=== PATIENT | female | born 1955 | race African-American/Black ===

== ENCOUNTER 2016-10-23 11:14 | Emergency (ER) | payer MEDICAID ==
[~2016-10-23] VITALS: Ht 157.5 cm; Wt 83.9 kg
[2016-10-23] MEDS ORDERED: PROMETHAZINE HCL 25 MG/1 ML VIAL IM ONE (12:15)
[2016-10-23] MEDS ORDERED: HYDROMORPHONE 1 MG/1 ML DISP.SYRIN IM ONE (12:15)
--- NOTE | 2016-10-23 12:22 | NUR ---
Patient discharged to home in stable conditon. Written and verbal after care instructions given. Patient verbalizes understanding of instructions.PT WALKS IN STEADY GAIT
[2016-10-23 12:23] VITALS: BP 116/71
== END 2016-10-23 12:24 | disposition home or self-care (01) ==
LOC: ER 11:14
DX: M25.551 Pain in right hip (principal); W18.40XA Slipping, tripping and stumbling without falling, unspecified, initial encounter; Y93.89 Activity, other specified; Y99.8 Other external cause status; Y92.89 Other specified places as the place of occurrence of the external cause
CPT/HCPCS: 73551; 93005; A4663

== ENCOUNTER 2016-12-23 09:59 | Emergency (ER) | payer MEDICAID ==
[~2016-12-23] VITALS: Ht 157.5 cm; Wt 83.9 kg
[2016-12-23] MEDS ORDERED: OMEP20TA5 PO (10:12)
[2016-12-23 11:02] LABS: BASOPHILS % (AUTO) 0.6 % (0.0-2.0); EOSINOPHILS # (AUTO) 0.2 K/uL (0.0-0.7); HEMOGLOBIN 13.3 G/DL (12.0-16.0); LYMPHOCYTES # (AUTO) 1.5 K/UL (0.8-4.8); MEAN CORPUSCULAR HEMOGLOBIN 27.7 UUG (27.0-31.0); RED BLOOD CELL COUNT(AUTO) 4.79 MIL/UL (4.2-5.4); WHITE BLOOD COUNT (AUTO) 6.4 K/UL (4.0-11.2)
[2016-12-23 11:04] LABS: EOSINOPHILS % (AUTO) 2.8 % (0.0-7.0); HEMATOCRIT 41.5 % (37-47); LYMPHOCYTES % (AUTO) 22.8 % (20.5-51.5); MEAN CORPUSCULAR HGB CONC 32 g/dL (32.0-37.0); MEAN CORPUSCULAR VOLUME 86.5 FL (81.0-99.0); MONOCYTES # (AUTO) 0.6 K/UL (0.1-1.30); MONOCYTES % (AUTO) 8.8 % (0.0-11.0); NEUTROPHILS # (AUTO) 4.1 K/UL (1.8-8.9); PLATELET COUNT (AUTO) 321 K/UL (150-450)
[2016-12-23 11:22] LABS: BILIRUBIN,DIRECT 0.1 mg/dL (0.0-0.2); BILIRUBIN,TOTAL 0.3 mg/dL (0.2-1.0); CREATININE 0.8 mg/dL (0.6-1.3); POTASSIUM 4.4 mmol/L (3.5-5.1); TOTAL PROTEIN, SERUM 7.5 g/dL (6.4-8.2)
[2016-12-23] MEDS ORDERED: ACETAMINOPHEN ES 500 MG TABLET PO ONE (11:45)
[2016-12-23] MEDS ORDERED: ACETAMINOPHEN ES 500 MG TABLET ONE (12:00)
--- NOTE | 2016-12-23 12:20 | NUR ---
Patient discharged to home in stable conditon. Written and verbal after care instructions given. Patient verbalizes understanding of instructions.pt walks in steady gait.
[2016-12-23 12:49] VITALS: BP 109/71
== END 2016-12-23 12:49 | disposition home or self-care (01) ==
LOC: ER 09:59
DX: S80.11XA Contusion of right lower leg, initial encounter (principal); Z88.8 Allergy status to other drugs, medicaments and biological substances; W18.30XA Fall on same level, unspecified, initial encounter; Y93.89 Activity, other specified; Y99.8 Other external cause status; Y92.89 Other specified places as the place of occurrence of the external cause
CPT/HCPCS: 36415; 73590; 80048; 80076; 84484; 85025; 93005; 99285; A4663; 70030-TC

== ENCOUNTER 2017-05-19 11:34 | Emergency (ER) | payer OTHER, MEDICAID ==
[~2017-05-19] VITALS: Ht 157.5 cm; Wt 90.7 kg
[~2017-05-19 11:34] MED LIST: OMEP20TA5 PO
[2017-05-19] MEDS ORDERED: AZITHROMYCIN 250 MG TABLET PO ONE (12:00)
--- NOTE | 2017-05-19 12:09 | NUR ---
Patient discharged to home in stable conditon. Written and verbal after care instructions given. Patient verbalizes understanding of instructions. RX X1 GIVEN
[2017-05-19 12:10] VITALS: BP 106/78
[2017-05-19] MEDS ORDERED: AZITHROMYCIN 250 MG TABLET ONE (12:16)
== END 2017-05-19 12:10 | disposition home or self-care (01) ==
LOC: ER 11:34
DX: J02.9 Acute pharyngitis, unspecified (principal)
CPT/HCPCS: A4663; Q0144

== ENCOUNTER 2018-02-25 11:55 | Emergency (ER) | payer MEDICAID, OTHER ==
[~2018-02-25] VITALS: Ht 157.5 cm; Wt 86.2 kg
== END 2018-02-25 13:00 | disposition home or self-care (01) ==
LOC: ER 11:55
DX: S09.90XA Unspecified injury of head, initial encounter (principal); Z88.8 Allergy status to other drugs, medicaments and biological substances; W10.9XXA Fall (on) (from) unspecified stairs and steps, initial encounter; Y93.89 Activity, other specified; Y92.89 Other specified places as the place of occurrence of the external cause; Y99.8 Other external cause status
CPT/HCPCS: 70450; 73660; A4663